=== PATIENT | male | born 1955 | race Caucasian/White ===

== ENCOUNTER 2017-12-29 07:15 | Day surgery (SDC) | payer MEDICAID ==
[2017-12-28 10:38] LABS: HEMATOCRIT 44.2 % (42.0-54.0); HEMOGLOBIN 15.5 g/dL (13.5-17.5); MCH 28.7 pg (26.0-34.0); MCHC 35.1 g/dL (31.0-37.0); MCV 81.9 fL (80.0-100.0); MEAN PLATELET VOLUME 10.3 fL (7.4-10.4); RBC 5.4 10x6/uL (4.20-6.10); WBC 6.7 10x3/uL (4.8-10.8)
[2017-12-28 10:54] LABS: CALC OSMOLALITY 280 mosm/kg (275-300); CALCIUM 9.1 mg/dL (8.5-10.1); CARBON DIOXIDE 24.2 mmol/L (21.0-32.0); CHLORIDE - SERUM 104 mmol/L (98-107); GLUCOSE 115 mg/dL (74-106); POTASSIUM - SERUM 4.7 mmol/L (3.5-5.1); SODIUM 139 mmol/L (136-145); UREA NITROGEN 19 mg/dL (7-18); eGFR NON AFRICAN AMERICAN 80 mL/min (90-120)
[~2017-12-29] VITALS: Ht 180.3 cm; Wt 116.6 kg
--- NOTE | ~2017-12-29 | OP ---
PATIENT NAME: ULYSSES DE LA CRUZ MEDICAL RECORD: [id number] :51 LOCATION:D[facility]OPS ADMISSION DATE: SURGEON: YONY BROWNE MD DATE OF OPERATION: 12/29/2017 SURGEON: Yony Browne MD ANESTHESIA: MAC by Dr. Asher Jones. PREOPERATIVE DIAGNOSIS: Elevated PSA 6.15. PROCEDURE: Transrectal ultrasound and prostate biopsy. FINDINGS: 122 gram prostate with no hypoechoic areas. SPECIMENS: Prostate biopsy cores. ESTIMATED BLOOD LOSS: None. CLINICAL HISTORY: This is a 62-year-old male referred by Dr. Mayo for an elevated PSA of 6.15 on 11/19/2017. He is currently taking tamsulosin for BPH. There is a positive family history of prostate cancer with an older brother having prostate cancer. On rectal examination, he had a moderate sized prostate which did not have any nodules. He comes today to have a prostate biopsy performed. He has been taking antibiotic prophylaxis and he had a Fleet enema last night. DESCRIPTION OF PROCEDURE: The patient was given IV sedation. He was placed in the dorsal lithotomy position. The transrectal ultrasound probe was introduced and prostate size measurements were obtained. The prostate is not wide, but it is deep. This led to a large prostate size estimation. The depth will also make sampling somewhat difficult as the more anterior portion of the prostate will not be reached by our sampling needle. Nevertheless, we took sextant biopsies from the prostate. At least 3 cores were obtained from each sextant. Once the specimens were obtained, the procedure was terminated. The patient will be going home today. I will see him in followup next week in order to review the pathology with him. TRANSINT:[id number] Voice Confirmation ID: [id number] DOCUMENT ID: [id number] YONY BROWNE MD at 1710 CC: [id number] DICTATION DATE: 12/29/17 1040 MOLDING SUPERVISOR: 12/29/17 1221 [facility] 12/29/17 [place] [id number] [place] [id number]
[~2017-12-29 07:15] MED LIST: FLOMAX0.4 MG PO; FLUTICASONE PRO16 GM NASAL; GLUCOPHAGE1000 MG PO; LISINOPRIL10 MG PO
[2017-12-29 08:16] VITALS: BP 123/69; Ht 180.3 cm; Wt 116.6 kg
== END 2017-12-29 12:20 | disposition home or self-care (01) ==
LOC: D.OPS 07:15 → D.PAN 09:50 → D.OPS 10:00
PROVIDERS: Anesthesiology
DX: R97.20 Elevated prostate specific antigen [PSA] (principal); I10 Essential (primary) hypertension; E11.9 Type 2 diabetes mellitus without complications; Z01.812 Encounter for preprocedural laboratory examination

== ENCOUNTER → 2018-04-13 14:55 | Outpatient (CLI) | payer MEDICAID ==
[2017-12-29 08:16] VITALS: BMI 35.9
[2018-04-13 17:35] LABS: CHOL - HDL RATIO 3.7 ratio (2.3-4.9); LDL-HDL RATIO 2.4 ratio (1.5-3.5)
== END | disposition home or self-care (01) ==
LOC: D.LABREF 14:55
PROVIDERS: Internal Medicine Cardiovascular Disease
DX: I10 Essential (primary) hypertension (principal); R53.83 Other fatigue; R07.9 Chest pain, unspecified